=== PATIENT | male | born 1945 | race Two or more races ===

== ENCOUNTER 2019-11-07 10:20 | Day surgery (SDC) | payer OTHER | END 2019-11-07 14:33 | disposition home or self-care (01) | LOC: AMB-ENDOS 10:20 | PROVIDERS: ATTEND Colon & Rectal Surgery | DX: D12.2 Benign neoplasm of ascending colon (principal); K64.2 Third degree hemorrhoids ==

== ENCOUNTER 2021-03-28 07:13 | Outpatient (CLI) | payer OTHER | END 2021-03-28 07:15 | disposition home or self-care (01) | LOC: NUCLEAR 07:13 | PROVIDERS: ATTEND Internal Medicine Cardiovascular Disease | DX: I25.6 Silent myocardial ischemia (principal); I25.10 Atherosclerotic heart disease of native coronary artery without angina pectoris | CPT/HCPCS: 78452; 93017; A9500; J1250 ==